=== PATIENT | male | born 1955 | race Caucasian/White ===

== ENCOUNTER 2016-12-10 13:07 | Emergency (ER) | payer OTHER ==
[2016-12-10 13:11] VITALS: BP 114/90; PULSE 89; TEMP 98.2; BMI 37.1
--- NOTE | 2016-12-10 14:43 | PDOC ---
History of Present Illness - General Chief Complaint: Pain, Acute Stated Complaint: LT KNEE PAIN Time Seen by Provider: 12/10/16 13:57 History Source: Patient Exam Limitations: No Limitations - History of Present Illness Initial Comments: 12/10/16 14:36 61 yr male fell on his left knee 2 days ago at work. pt has continued pain. pt is ambulatory. Occurred: denies: other (2 days ago ) Method of Injury: Yes: fell (in a hole ) Lower Ext. Injury Location - Specific Injury Location Knees: left pain Past History - Past Medical History Allergies/Adverse Reactions: Allergies Allergy/AdvReac Type Severity Reaction Status Date / Time No Known Allergies Allergy Verified 12/10/16 13:11 Home Medications: Ambulatory Orders Metoprolol Tartrate [Lopressor -] 25 mg PO BID #0 tab 06/05/11 Aspirin [ASA -] 81 mg PO DAILY 12/10/16 Anemia: No Asthma: No Cancer: No Cardiac Disorders: No CVA: No COPD: No CHF: No Dementia: No Diabetes: No GI Disorders: No Disorders: No HTN: Yes Hypercholesterolemia: No Liver Disease: No Seizures: No Thyroid Disease: No - Surgical History Abdominal Surgery: No Appendectomy: No Cardiac Surgery: No Cholecystectomy: No Lung Surgery: No Neurologic Surgery: No Orthopedic Surgery: No - Psycho/Social/Smoking Cessation Hx Anxiety: No Suicidal Ideation: No Smoking Status: No Smoking History: Never smoked Have you smoked in the past 12 months: No Number of Cigarettes Smoked Daily: 0 Information on smoking cessation initiated: No Hx Alcohol Use: No Drug/Substance Use Hx: No Substance Use Type: None Hx Substance Use Treatment: No Review of Systems - Review of Systems Able to Perform ROS?: Yes Is the patient limited Bur[place]ian proficient: No Constitutional: No: Symptoms Reported HEENTM: No: Symptoms Reported Respiratory: No: Symptoms reported Cardiac (ROS): No: Symptoms Reported ABD/GI: No: Symptoms Reported : No: Symptoms Reported Musculoskeletal: Yes: Symptoms Reported *Physical Exam - Vital Signs Last Vital Signs Temp Pulse Resp BP Pulse Ox 98.2 F 89 17 114/90 96 12/10/16 13:09 12/10/16 13:09 12/10/16 13:09 12/10/16 13:09 12/10/16 13:09 - Physical Exam General Appearance: Yes: Nourished, Appropriately Dressed HEENT: positive: EOMI, MURALI Neck: negative: Tender Respiratory/Chest: positive: Lungs Clear, Normal Breath Sounds Cardiovascular: positive: Regular Rhythm, Regular Rate Musculoskeletal: positive: Normal Inspection Extremity: positive: Normal Capillary Refill, Normal Inspection, Normal Range of Motion, Other (pain to left knee with extension at the patella, no swelling no crepitus, no deformity ) ED Treatment Course - RADIOLOGY Radiology Studies Ordered: Category Date Time Status KNEE 3 POS-LEFT [RAD] Stat Radiology 12/10/16 14:11 Completed Medical Decision Making - Medical Decision Making 12/10/16 14:45 cc: left knee pain trauma after fall 2 days ago no deformity nv intact pt is able to ambulate will get xray to r/o fracture pt refused any pain meds pt is aware of the improtance to follow up within one to 2 weeks with the orthopedist. 12/10/16 14:55 *DC/Admit/Observation/Transfer Diagnosis at time of Disposition: Knee injury Qualifiers: Encounter type: initial encounter Laterality: left Qualified Code(s): S89.92XA - Unspecified injury of left lower leg, initial encounter - Discharge Dispostion Disposition: HOME Condition at time of disposition: Good - Referrals Referrals: Kamar Eng MD [Primary Care Provider] - Jason Osullivan MD [Staff Physician] - - Patient Instructions Additional Instructions: follow with the orthopedist for follow up take motrin (advil, ibuprofen) as needed avoid strenuous activity if pain persists or worsens
== END 2016-12-10 14:58 | disposition home or self-care (01) ==
LOC: JERFT 13:07
DX: S89.82XA Other specified injuries of left lower leg, initial encounter (principal); W17.2XXA Fall into hole, initial encounter; Y93.89 Activity, other specified; Y92.69 Other specified industrial and construction area as the place of occurrence of the external cause; Y99.0 Civilian activity done for income or pay
CPT/HCPCS: 73562-TC-LT; 99281-25

== ENCOUNTER 2018-05-14 13:39 | Emergency (ER) | payer OTHER ==
[2018-05-14 13:43] VITALS: BMI 37.1
--- NOTE | 2018-05-14 14:45 | PDOC ---
History of Present Illness - General Chief Complaint: Lightheaded Stated Complaint: SWEATS Time Seen by Provider: 05/14/18 14:28 History Source: Patient Exam Limitations: No Limitations - History of Present Illness Initial Comments: 05/14/18 14:37 62 year old man history of HTN, prediabetes and HLD who presents with 3 days of numbness and tingling on the bottom of his feet and episodes of lightheadedness , as if he might pass out, that last 30min and resolve with eating food and not associated with exertion or time of day. The patient has blurred vision and diaphoresis with the episodes of lightheadedness. The patient reports one prior episode nubmness and tingling on the feet that occurred one year ago and resolved after < 1month. He describes the tingling as needles and notes that it only occurs when he walks for some time on his feet. The patient denies chest pain, shortness of breath, headache, abdominal pain, recent illness or recent travel or fever, N/V/D/C. Patient reports he was told he had pre-diabetes at PCP appointment 3 months ago. Past History - Past Medical History Allergies/Adverse Reactions: Allergies Allergy/AdvReac Type Severity Reaction Status Date / Time No Known Allergies Allergy Verified 05/14/18 13:43 Home Medications: Ambulatory Orders Aspirin [Reyes Chewable] 81 mg PO DAILY 05/14/18 Atorvastatin Ca [Lipitor] 80 mg PO HS 05/14/18 Losartan Potassium [Cozaar] 100 mg PO DAILY 05/14/18 Anemia: No Asthma: No Cancer: No Cardiac Disorders: No CVA: No COPD: No CHF: No Dementia: No Diabetes: No GI Disorders: No Disorders: No HTN: Yes Hypercholesterolemia: Yes Liver Disease: No Seizures: No Thyroid Disease: No - Surgical History Abdominal Surgery: No Appendectomy: No Cardiac Surgery: No Cholecystectomy: No Lung Surgery: No Neurologic Surgery: No Orthopedic Surgery: No - Suicide/Smoking/Psychosocial Hx Smoking Status: No Smoking History: Never smoked Have you smoked in the past 12 months: No Number of Cigarettes Smoked Daily: 0 Hx Alcohol Use: No Drug/Substance Use Hx: No Substance Use Type: None Hx Substance Use Treatment: No Review of Systems - Review of Systems Able to Perform ROS?: Yes Is the patient limited Grenadian proficient: No Constitutional: No: Chills, Diaphoresis HEENTM: Yes: See HPI, Blurred Vision. No: Tinnitus Respiratory: No: See HPI, Cough, Orthopnea, Shortness of Breath Cardiac (ROS): Yes: Lightheadedness. No: See HPI, Chest Pain, Palpitations, Syncope, Chest Tightness ABD/GI: No: Constipated, Diarrhea, Nausea, Vomiting : No: Burning, Dysuria, Hematuria, Incontinence Neurological: No: Headache, Numbness, Tingling *Physical Exam - Vital Signs Last Vital Signs Temp Pulse Resp BP Pulse Ox 97.9 F 101 H 20 151/81 99 05/14/18 13:40 05/14/18 13:40 05/14/18 13:40 05/14/18 13:40 05/14/18 13:40 - Physical Exam Comments: 05/14/18 15:02 GENERAL: Awake, alert, and fully oriented, in no acute distress HEAD: No signs of trauma, normocephalic, atraumatic EYES: PERRLA, EOMI, sclera anicteric, conjunctiva clear ENT: no dentition, oropharynx clear without exudates. Moist mucosa NECK: Normal ROM, supple, no lymphadenopathy, JVD, or masses LUNGS: No distress, speaks full sentences, clear to auscultation bilaterally HEART: Regular rate and rhythm, normal S1 and S2, no murmurs, rubs or gallops, peripheral pulses normal and equal bilaterally. ABDOMEN: Soft, nontender, normoactive bowel sounds. No guarding, no rebound. No masses EXTREMITIES : Normal inspection, Normal range of motion, no edema. No clubbing or cyanosis. + bilateral PT nad DP pulses NEUROLOGICAL: Cranial nerves II through XII grossly intact. intact proprioception, Normal speech, normal gait, no focal sensorimotor deficits SKIN: Warm, Dry, normal turgor, no rashes or lesions noted Moderate Sedation - Procedure Monitoring Vital Signs: Procedure Monitoring Vital Signs Temperature 97.9 F 05/14/18 13:40 Pulse Rate 101 H 05/14/18 13:40 Respiratory Rate 20 05/14/18 13:40 Blood Pressure 151/81 05/14/18 13:40 O2 Sat by Pulse Oximetry (%) 99 05/14/18 13:40 ED Treatment Course - LABORATORY CBC & Chemistry Diagram: 05/14/18 14:32 05/14/18 14:32 Medical Decision Making - Medical Decision Making 05/14/18 15:08 62 year old man history of HTN, prediabetes and HLD who presents with 3 days of numbness and tingling on the bottom of his feet and episodes of lightheadedness , as if he might pass out, that last 30min and resolve with eating food and not associated with exertion or time of day. The patient has blurred vision and diaphoresis with the episodes of lightheadedness. The patient reports one prior episode nubmness and tingling on the feet that occurred one year ago and resolved after < 1month. He describes the tingling as needles and notes that it only occurs when he walks for some time on his feet. ED Course: Consider causes of symptoms Tingling: peripheral neuropathy, PAD/claudication Lightheaded: electrolyte, arrythmia, hypoglycemia, aortic stenosis No calf pain or tenderness that occurs when walking, inconsistent with PAD. Patient wth pre-diabetes, likely symptoms due to peripheral neuropathy cbc, cmp, hbA1C, ekg, cxr, ua, ucx, trop EKG: normal sinus rhythm HR 85, no interval abnormalities, narrow QRS, ST and T wave segments and morphology normal. No T waves or ischemic changes. Negative orthostatics vitals, no drop in systolic BP > 20, diastolic > 10 or HR inc by 30bpm 05/14/18 16:15 cbc, cmp, trop - negative 05/14/18 16:33 PCP, Dr. Eng contacted, informed of patient. would like to see patient in office on Wednesday 05/16 at 3pm. Pneding HbA1c and CXR. 05/14/18 16:43 CXR: well demarcated cardiac borders and costophrenic angles without blunting, no cardiomegaly, midline airway, appropriate vascular markings, as read by this process description writer. 05/14/18 17:05 UA: negative. 05/14/18 17:18 HbA1C: 6 Repeat trop, if negative DC 05/14/18 18:44 Repeat troponin negative. Patient stable for discharge. Informed of all lab and imaging results. Given follow up instructions and strict return precautions. Patient expressed understanding and agree to plan. *DC/Admit/Observation/Transfer Diagnosis at time of Disposition: Neuropathy - Discharge Dispostion Disposition: HOME Condition at time of disposition: Stable Decision to Admit order: No - Referrals Referrals: Kamar Eng MD [Primary Care Provider] - - Patient Instructions Printed Discharge Instructions: DI for Peripheral Neuropathy Additional Instructions: You were seen in the ED for complaints of lightheadedness and numbness and tingling of the feet. In the ED you were evaluated with labwork and imaging. Your results were unremarkable. There does not appear to be an acute need for immediate hospitalization. Your Primary Care Physician Dr. Eng was contacted and he will see you in the office on Wednesday, May 16 at 3pm. Return to the ED immediately if you experience worsening lightheadedness, loss of consciousness, changes in vision, chest pain, heart palpitations, headache, nausea, vomiting, shortness of breath or fever. - Post Discharge Activity
[2018-05-14 15:34] LABS: BASO % 0.6 % (0-2.0); EOS % 0.3 % (0-4.5); HEMOGLOBIN 16.9 GM/dL (11.7-16.9); LYMPH % 16.6 % (8-40); MEAN CELL VOLUME 91.6 fl (80-96); MEAN PLT VOLUME 7.7 fl (7.5-11.1); MONO % 5.5 % (3.8-10.2); PLATELET COUNT 226 K/MM3 (134-434); RBC 5.13 M/mm3 (4.00-5.60); RDW 12.7 % (11.9-15.9); WHITE BLOOD COUNT 9.9 K/mm3 (4.0-10.0)
[2018-05-14] MEDS ORDERED: SODIUM CHLORIDE 1,000 ML IV SCH (15:45)
[2018-05-14 15:59] LABS: ALBUMIN 4.4 g/dl (3.4-5.0); ALK PHOS 60 U/L (45-117); ANION GAP 7 MMOL/L (8-16); BILIRUBIN,TOTAL 0.5 mg/dL (0.2-1); BLOOD UREA NITROGEN 26 mg/dL (7-18); CALCIUM 8.3 mg/dL (8.5-10.1); CHLORIDE 106 mmol/L (98-107); CO2 25 mmol/L (21-32); CREATININE 1.1 mg/dL (0.55-1.3); GLUCOSE,RANDOM 100 mg/dL (74-106); POTASSIUM 4.4 mmol/L (3.5-5.1); SGOT/AST 28 U/L (15-37); SGPT/ALT 31 U/L (13-61); SODIUM 138 mmol/L (136-145)
[2018-05-14 16:00] VITALS: BP 141/88; PULSE 83; TEMP 98
[2018-05-14 16:28] LABS: URINE APPEARANCE CLEAR; URINE BILIRUBIN NEGATIVE (<2.0 mg/dL); URINE COLOR LTYELLOW; URINE GLUCOSE (UA) NEGATIVE (NEGATIVE); URINE KETONE NEGATIVE (NEGATIVE); URINE LEUK ESTERASE NEGATIVE (NEGATIVE); URINE NITRITE NEGATIVE (NEGATIVE); URINE PROTEIN NEGATIVE (NEGATIVE); URINE UROBILINOGEN NEGATIVE mg/dL (0.2-1.0)
--- NOTE | 2018-05-14 16:30 | PDOC ---
Attending Attestation - Resident Resident Name: BillyFany - ED Attending Attestation I have performed the following: I have examined & evaluated the patient, The case was reviewed & discussed with the resident, I agree w/resident's findings & plan, Exceptions are as noted - HPI HPI: 05/14/18 16:31 The patient is a 62 year old male, with a significant past medical history of HTN and HLD, who presents to the emergency department with 3 days of symmetric intermittent numbness and tingling to the bilateral bottoms of the feet. Patient endorses his numbness and tingling begin after walking long periods of time,he denies currently. Reports when numbness occurs, it only occurs to the bottom of both feet, not the top of the foot or the rest of the extremity. He notes similar episodes a year ago which occurred for a month and resolved on its own. Pt had an episode of lightheadedness today lasting 30 minutes while at [employer] that resolved with eating lunch that prompted him to come to the ED. 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 Denies current lightheadedness, states he is asymptomatic. Reports recent diagnosis of pre-diabetes. He denies any recent fevers, chills, headache or dizziness. He denies any recent nausea, vomit, diarrhea or constipation. He denies any recent chest pain or shortness of breath. Denies focal weakness/numbness. He denies any recent dysuria, frequency, urgency or hematuria. Allergies: NKA Past surgical history: None reported. Social History: Nonsmoker. Denies EtOH use and recreational drug use. Primary Care Physician: Dr. Eng - Physicial Exam PE: 05/14/18 18:15 GENERAL: Awake, alert, and fully oriented, in no acute distress EYES: PERRLA, EOMI, sclera anicteric, conjunctiva clear ENT: Oropharynx clear without exudates. Moist mucosa NECK: Normal ROM, supple, no lymphadenopathy, JVD, or masses LUNGS: Breath sounds equal, clear to auscultation bilaterally. No wheezes, and no crackles HEART: Regular rate and rhythm, normal S1 and S2, no murmurs, rubs or gallops ABDOMEN: Soft, nontender, normoactive bowel sounds. No guarding, no rebound. No masses EXTREMITIES: DP and PT pulses are 2+ equal and symmetric. Normal range of motion , no edema. No clubbing or cyanosis. No cords, erythema, or tenderness BACK: No midline spinal tenderness in cervical/thoracic/lumbar region NEUROLOGICAL: Normal speech, cranial nerves intact, negative pronator drift, 5/ 5 strength in all 4 extremities, normal sensation to light touch in all 4 extremities, normal cerebellar exam, normal gait, normal tone SKIN: Warm, Dry, normal turgor, no rashes or lesions noted. - Medical Decision Making 05/14/18 18:21 62yo M hx HTN, HL, pre-DM presents to the ED with transient lightheadedness this morning, resolved with food and 3 days of intermittent exertional numbness only to the bottom of the feet b/l. Vitals wnl. Exam completely non focal, no neuro deficits. ORthostatics negative. With regards to transient lightheadedness , labs, EKG, CXR performed with no metabolic abnormalities, no ischemia, no evidence of infection or structural abnormalities. With regards to transient plantar tingling/numbness, possible peripheral neuropathy vs anemia. HgbA1C 6 consistent with pre-DM. MCV wnl. Unclear etiology, but could be due to pre-DM. 2 + peripheral pulses with normal cap refill b/l argues against claudication or vascular lesions. Results and case discussed with pt's PMD Dr. Eng who would like to see the patient Wednesday 05/16. Pt asymptomatic while in ED, does not appear to need emergent care at this time. Requests DC home, agree to f/u on Wednesday. REturn precautions given. I discussed the physical exam findings, ancillary test results and final diagnoses with the patient. I answered all of the patient's questions. The patient was satisfied with the care received and felt comfortable with the discharge plan and treatment plan. The patient will call their primary care physician within 24 hours to arrange follow-up and will return to the Emergency Department with any new, persistent or worsening symptoms. Heart Score/ECG Review #1 05/14/18 18:20 Twelve-lead EKG was performed and reviewed by me. Normal sinus rhythm, rate 85. Normal axis and intervals. No ST elevations or T-wave inversions.
--- NOTE | 2018-05-16 07:23 | EKG ---
Test Reason : Blood Pressure : / mmHG Vent. Rate : 085 BPM Atrial Rate : 085 BPM P-R Int : 182 ms QRS Dur : 082 ms QT Int : 362 ms P-R-T Axes : 052 -08 048 degrees QTc Int : 430 ms NORMAL SINUS RHYTHM NORMAL ECG WHEN COMPARED WITH ECG OF 04-JUN-2011 14:40, NONSPECIFIC T WAVE ABNORMALITY, IMPROVED IN LATERAL LEADS Confirmed by JOSEPH MCKEON, TERESE ([id number]) on 05/16/2018 7:23:20 AM Referred By: Confirmed By:TERESE RUIZ MD
== END 2018-05-14 18:47 | disposition home or self-care (01) ==
LOC: JER 13:39
DX: G62.9 Polyneuropathy, unspecified (principal); I10 Essential (primary) hypertension; R73.03 Prediabetes; E78.5 Hyperlipidemia, unspecified
CPT/HCPCS: 36415; 71045-TC-FY; 80053; 81003; 82962; 83036; 84484; 85025; 87086; 93005; 93010; 99284-25; J7030

== ENCOUNTER 2019-05-24 16:31 | Emergency (ER) | payer OTHER ==
[2019-05-24 16:38] VITALS: BP 101/70; PULSE 77; TEMP 99; BMI 33.9
--- NOTE | 2019-05-24 16:43 | PDOC ---
Rapid Medical Evaluation Chief Complaint: Headache Time Seen by Provider: 05/24/19 16:34 Medical Evaluation: Allergies Allergy/AdvReac Type Severity Reaction Status Date / Time No Known Allergies Allergy Verified 05/14/18 13:43 Vital Signs Temp Pulse Resp BP Pulse Ox 99.0 F 77 16 101/70 99 05/24/19 16:35 05/24/19 16:35 05/24/19 16:35 05/24/19 16:35 05/24/19 16:35 05/24/19 16:42 Pt c/o: frontal, nasal headache x 1 week, no fever or visual changes, no head injury, similar s/s to sinusitis he had 1 year ago pt on brief exam: vss, eomi, perrl Pt ordered for: cbc, comp, ivf, iv, head ct pt to proceed to the ED 05/24/19 16:45 Discharge Disposition - Diagnosis Headache - Discharge Dispostion Condition at time of disposition: Stable - Referrals - Patient Instructions - Post Discharge Activity
[2019-05-24] MEDS ORDERED: CYCLOBENZAPRINE HCL 10 MG TABLET (FP) PO ONE (17:51)
[2019-05-24] MEDS ORDERED: KETOROLAC TROMETHAMINE 60 MG/2 ML VIAL IM ONE (17:51)
[2019-05-24] MEDS ORDERED: CYCLOBENZAPRINE HCL 10 MG TABLET (FP) ONE ×2 (18:00→18:06)
[2019-05-24] MEDS ORDERED: KETOROLAC TROMETHAMINE 60 MG/2 ML VIAL ONE (18:00)
--- NOTE | 2019-05-24 18:43 | PDOC ---
Documentation entered by Ashley Washington SCRIBE, acting as scribe for Gamaliel Renner MD. Gamaliel Renner MD: This documentation has been prepared by the Padmini pham Nirvannie, SCRIBE, under my direction and personally reviewed by me in its entirety. I confirm that the documentation accurately reflects all work, treatment, procedures, and medical decision making performed by me. Attending Attestation - Resident Resident Name: Anibal Simeon - ED Attending Attestation I have performed the following: I have examined & evaluated the patient, The case was reviewed & discussed with the resident, I agree w/resident's findings & plan, Exceptions are as noted - HPI HPI: 05/24/19 17:46 63y M hx of htn, hl, presents with 2 weeks of gradual onset R frontal/parietal headache. Denies any focal numbnes/tingling/.weakness, vision changes, dizziness /imbalance, fever/chills. Pt notes it started off as a crick in his neck approx 2 weeks ago, that he "hears a sound in his ear when he moves his head", notes that he began to feel mild discomfort that began to radiate up to the base of the skull. The pain seems worse when he turns his head in certain positions. Patient denies any recent injury, falls, injuries, focal weakness, numbness, tingling, vision changes, chest pain, shortness of breath. Patient has been taking Tylenol with mild improvement - Physicial Exam PE: 05/24/19 18:41 GENERAL: The patient is awake, alert, and fully oriented, Nontoxic - in no acute distress. HEAD: Normocephalic, atraumatic. EYES: extraocular movements intact, sclera anicteric, conjunctiva clear. ENT: Normal voice, Moist mucous membranes. NECK: Normal range of motion, supple, mild tenderness in the trapezius bilaterally extending to the base of the skull LUNGS: Breath sounds equal, clear to auscultation bilaterally. No wheezes, no rhonchi, no rales. HEART: Regular rate and rhythm, normal S1 and S2 without murmur, rub or gallop. ABDOMEN: Soft, nontender, No guarding, no rebound. No CVA tenderness EXTREMITIES: Normal range of motion, no edema. NEUROLOGICAL: No facial assymetry, Normal speech, PSYCH: Normal mood, normal affect. SKIN: Warm, Dry, normal turgor, - Medical Decision Making 05/24/19 18:42 Suspect the patient's symptoms may be secondary to neck spasms Patient feeling improved after Toradol and Flexeril No signs suggestive of acute neurologic or intracranial emergency. Recommend supportive care including NSAIDs, Tylenol, heating pads, rest Return precautions were discussed
--- NOTE | 2019-05-24 19:07 | PDOC ---
History of Present Illness - General Chief Complaint: Headache Stated Complaint: HEADACHES Time Seen by Provider: 05/24/19 16:34 History Source: Patient Past History - Past Medical History Allergies/Adverse Reactions: Allergies Allergy/AdvReac Type Severity Reaction Status Date / Time No Known Allergies Allergy Verified 05/14/18 13:43 Home Medications: Ambulatory Orders Aspirin [Reyes Chewable] 81 mg PO DAILY 05/14/18 Atorvastatin Ca [Lipitor] 80 mg PO HS 05/14/18 Losartan Potassium [Cozaar] 100 mg PO DAILY 05/14/18 Anemia: No Asthma: No Cancer: No Cardiac Disorders: No CVA: No COPD: No CHF: No Dementia: No Diabetes: No GI Disorders: No Disorders: No HTN: Yes Hypercholesterolemia: Yes Liver Disease: No Seizures: No Thyroid Disease: No - Surgical History Abdominal Surgery: No Appendectomy: No Cardiac Surgery: No Cholecystectomy: No Lung Surgery: No Neurologic Surgery: No Orthopedic Surgery: No - Immunization History Immunization Up to Date: No - Psycho Social/Smoking Cessation Hx Smoking Status: No Smoking History: Former smoker Have you smoked in the past 12 months: No Number of Cigarettes Smoked Daily: 0 Information on smoking cessation initiated: No Hx Alcohol Use: No Drug/Substance Use Hx: No Substance Use Type: None Hx Substance Use Treatment: No *Physical Exam - Vital Signs Last Vital Signs Temp Pulse Resp BP Pulse Ox 99.0 F 77 16 101/70 99 05/24/19 16:35 05/24/19 16:35 05/24/19 16:35 05/24/19 16:35 05/24/19 16:35 ED Treatment Course - Medications Given in the ED: ED Medications Discontinued Medications Generic Name Dose Route Start Last Admin Trade Name Freq PRN Reason Stop Dose Admin Cyclobenzaprine HCl 10 mg 05/24/19 17:51 05/24/19 18:13 Flexeril - PO 05/24/19 17:52 10 mg ONCE ONE Administration Ketorolac Tromethamine 60 mg 05/24/19 17:51 05/24/19 18:13 Toradol Injection - IM 05/24/19 17:52 60 mg ONCE ONE Administration Discharge - Discharge Information Problems reviewed: Yes Clinical Impression/Diagnosis: Headache Qualifiers: Headache type: unspecified Headache chronicity pattern: acute headache Intractability: not intractable Qualified Code(s): R51 - Headache Condition: Stable Disposition: HOME - Admission No - Follow up/Referral Referrals: Kamar Eng MD [Primary Care Provider] - - Patient Discharge Instructions Patient Printed Discharge Instructions: DI for Headache, DI for Neck Pain Additional Instructions: You were seen in the ER for neck pain and headache. Your pain improved with muscle relaxants. Please take acetaminophen as needed every 6 hours to control your pain - review the back of the bottle and make sure that you do not take more than the maximum daily dose. Please return to the ER if you develop weakness, intractable nausea and vomiting, urinary incontinence, or a headache that is very severe and concerning to you. Please see your primary care provider as soon as possible, in the next 2-3 days. - Post Discharge Activity
== END 2019-05-24 20:15 | disposition home or self-care (01) ==
LOC: JER 16:31
PROC: 3E0233Z Introduction of Anti-inflammatory into Muscle, Percutaneous Approach (ICD-10-PCS; principal; 2019-05-24)
DX: R51 Headache (principal); Z87.891 Personal history of nicotine dependence; I10 Essential (primary) hypertension; E78.00 Pure hypercholesterolemia, unspecified
CPT/HCPCS: 99282-25

== ENCOUNTER 2020-01-20 09:43 | Emergency (ER) | payer OTHER ==
[2020-01-20 09:48] VITALS: BP 151/77; PULSE 85; TEMP 98.1; BMI 32.3
--- NOTE | 2020-01-20 10:29 | PDOC ---
History of Present Illness - General Chief Complaint: Pain, Acute Stated Complaint: R/KNEE PAIN Time Seen by Provider: 01/20/20 10:04 History Source: Patient Exam Limitations: No Limitations - History of Present Illness Initial Comments: 01/20/20 10:25 Patient is a 64-year-old male with a history of hypertension who presents to the ED with complaint of right knee pain that has been ongoing since January 01. He states that he slipped off the bed of his truck at work and has had knee pain since. He states the pain was not immediate but began thereafter. He saw his primary doctor the Wednesday after his injury and was prescribed Naprosyn. He states he was told he did not have any fractures. The patient states the last 2 days the pain has been worse so he came to the ED for evaluation. He has been putting ice on his knee which has been helping. He states the Naprosyn does not help. He denies any numbness or tingling. He has been walking on his knee but states it hurts to do so. The pain does not radiate. Past History - Medical History Allergies/Adverse Reactions: Allergies Allergy/AdvReac Type Severity Reaction Status Date / Time No Known Allergies Allergy Verified 01/20/20 09:48 Home Medications: Ambulatory Orders Aspirin [Reyes Chewable] 81 mg PO DAILY 05/14/18 Atorvastatin Ca [Lipitor] 80 mg PO HS 05/14/18 Losartan Potassium [Cozaar] 100 mg PO DAILY 05/14/18 Anemia: No Asthma: No Cancer: No Cardiac Disorders: No CVA: No COPD: No CHF: No Dementia: No Diabetes: No GI Disorders: No Disorders: No HTN: Yes Hypercholesterolemia: Yes Liver Disease: No Seizures: No Thyroid Disease: No - Surgical History Abdominal Surgery: No Appendectomy: No Cardiac Surgery: No Cholecystectomy: No Lung Surgery: No Neurologic Surgery: No Orthopedic Surgery: No - Immunization History Immunization Up to Date: No - Psycho-Social/Smoking History Smoking Status: No Smoking History: Never smoked Have you smoked in the past 12 months: No Number of Cigarettes Smoked Daily: 0 Information on smoking cessation initiated: No - Substance Abuse Hx (Audit-C & DAST Scrn) How often the patient has a drink containing alcohol: Never Score: In Men: 4 or > Positive; In Women: 3 or > Positive: 0 Screen Result (Pos requires Nsg. Audit-10AR): Negative In the last yr the pt used illegal drug/Rx for NonMed reason: No Score: Yes response is considered Positive: 0 Screen Result (Positive result requires Nsg. DAST-10): Negative Review of Systems - Review of Systems Comments:: 01/20/20 10:26 - Review of Systems Able to Perform ROS?: Yes Constitutional: No: Fever, Chills, Loss of Appetite, Night Sweats, Weakness HEENTM: No: Eye Pain, Vision changes, Ear Pain, Throat Pain, Throat Swelling, Mouth Pain, Difficulty Swallowing Respiratory: No: Cough, Shortness of Breath, Wheezing, Sputum Production Cardiac (ROS): No: Chest Pain, Chest Tightness, Palpitations, Irregular Heart Beat, Edema ABD/GI: No: Nausea, Vomiting, Abdominal Pain, Diarrhea : No Dysuria, No Hematuria, No Frequency, No Urgency Musculoskeletal: No: Muscle Pain, Back Pain, Muscle Weakness, Neck Pain; positive: Right knee pain Integumentary: No: Lesions, Rash Neurological: No: Headache, Numbness, Tingling, Weakness, Speech Difficulties *Physical Exam - Vital Signs Last Vital Signs Temp Pulse Resp BP Pulse Ox 98.1 F 85 19 151/77 98 01/20/20 09:46 01/20/20 09:46 01/20/20 09:46 01/20/20 09:46 01/20/20 09:46 - Physical Exam 01/20/20 10:27 - Physical Exam General Appearance: Nourished, Appropriately Dressed, No Distress HEENT: EOMI, Normal Voice, Hearing Grossly Normal Neck: Supple, No Lymphadenopathy (R), No Lymphadenopathy (L), No Rigidity, No Decreased range of motion Respiratory/Chest: Lungs Clear, Normal Breath Sounds. No Respiratory Distress, No Accessory Muscle Use Cardiovascular: Regular Rhythm, Regular Rate, S1, S2 Musculoskeletal: Normal Inspection. No Decreased Range of Motion; right knee pain without reproducible tenderness to palpation. Full range of motion of the right knee from 0 to 110 degrees actively. Pain elicited with valgus stress, no tenderness with varus stress. No crepitus appreciated. Extremity: Normal Capillary Refill, Normal Inspection Integumentary: Normal Color, Dry. No Rash Neurologic: yolk spray drier II-XII NML intact, Fully Oriented, Alert, Normal Mood/Affect, Normal Response ED Treatment Course - RADIOLOGY Radiology Studies Ordered: Category Date Time Status KNEE 3 POS-RIGHT [RAD] Stat Radiology 01/20/20 10:23 Ordered Medical Decision Making - Medical Decision Making 01/20/20 10:28 Assessment: Patient is a 64-year-old male with right knee pain since January 02, 2020 after a fall with a bed of his work truck. Plan: -Right knee x-ray ordered -Will reassess 01/20/20 10:50 Patient's right knee x-ray is negative for acute pathology. We will give him referral to orthopedics for him to follow-up with. He has been made aware that since this is Worker's Compensation he may have to go through Worker's Comp. for further evaluation and treatment. He can continue to take the Naprosyn that he was prescribed for pain. He understands and agrees with this treatment plan he is stable for discharge. Discharge - Discharge Information Problems reviewed: Yes Clinical Impression/Diagnosis: Right knee pain Qualifiers: Chronicity: acute Qualified Code(s): M25.561 - Pain in right knee Condition: Stable Disposition: HOME - Follow up/Referral Referrals: Kamar Eng MD [Primary Care Provider] - Wade Rodriguez MD [Staff Physician] - - Patient Discharge Instructions Patient Printed Discharge Instructions: DI for Knee Pain Additional Instructions: Ice and elevate your right knee. You can continue to take the Naprosyn as needed but only as prescribed. Follow-up with orthopedics for further evaluation and treatment. You may require an outpatient MRI if your pain continues. - Post Discharge Activity Work/Back to School Note: Back to Work
== END 2020-01-20 11:14 | disposition home or self-care (01) ==
LOC: JERFT 09:43
DX: M25.561 Pain in right knee (principal)
CPT/HCPCS: 73562-TC-RT-FY; 99283-25

== ENCOUNTER 2020-07-08 13:17 | Emergency (ER) | payer OTHER ==
[2020-07-08 13:34] VITALS: TEMP 98; BMI 38.7
[2020-07-08 16:09] LABS: BASO % 0.4 % (0-2.0); EOS % 0.2 % (0-4.5); HEMATOCRIT 49.8 % (35.4-49); HEMOGLOBIN 17.3 GM/dL (11.7-16.9); LYMPH % 17.1 % (8-40); MCH 32.7 pg (25.7-33.7); MCHC 34.6 g/dl (32.0-35.9); MEAN CELL VOLUME 94.5 fl (80-96); MONO % 8.7 % (3.8-10.2); NEUT % 73.6 % (42.8-82.8); RBC 5.28 M/mm3 (4.00-5.60); RDW 13.4 % (11.9-15.9); WHITE BLOOD COUNT 9.4 K/mm3 (4.0-10.0)
[2020-07-08 16:23] LABS: CHLORIDE 105 mmol/L (98-107); POTASSIUM 4.1 mmol/L (3.5-5.1); SODIUM 137 mmol/L (136-145)
[2020-07-08 16:25] LABS: ANION GAP 7 MMOL/L (8-16); BLOOD UREA NITROGEN 16.6 mg/dL (7-18); CALCIUM 8.8 mg/dL (8.5-10.1); CO2 24 mmol/L (21-32); GLUCOSE,RANDOM 94 mg/dL (74-106)
[2020-07-08 16:28] LABS: CREATININE 0.8 mg/dL (0.55-1.3); SGOT/AST 20 U/L (15-37); SGPT/ALT 36 U/L (13-61)
[2020-07-08 16:30] LABS: BILIRUBIN,TOTAL 1.1 mg/dL (0.2-1)
[2020-07-08 16:31] LABS: ALK PHOS 54 U/L (45-117)
[2020-07-08 18:13] LABS: PLATELET ESTIMATE NORMAL
[2020-07-08 20:13] VITALS: BP 144/88; PULSE 100
== END 2020-07-08 20:12 | disposition home or self-care (01) ==
LOC: JER 13:17
DX: R07.1 Chest pain on breathing (principal)
CPT/HCPCS: 36415; 71046-TC-FY; 71275-TC; 80053; 82550; 84484; 85025; 93005; 93010; 99285-25; C9803; Q9967; U0003

== ENCOUNTER 2021-05-21 14:08 | Emergency (ER) | payer OTHER ==
[2021-05-21 14:42] VITALS: BP 105/68; PULSE 87; TEMP 98.3; BMI 37.1
[2021-05-21 17:15] LABS: BASO % 0.4 % (0-2.0); EOS % 0.4 % (0-4.5); HEMATOCRIT 51.1 % (35.4-49); HEMOGLOBIN 17.8 GM/dL (11.7-16.9); LYMPH % 24.8 % (8-40); MCH 32.4 pg (25.7-33.7); MCHC 34.9 g/dl (32.0-35.9); MEAN CELL VOLUME 92.9 fl (80-96); MEAN PLT VOLUME 7.4 fl (7.5-11.1); MONO % 10.3 % (3.8-10.2); NEUT % 64.1 % (42.8-82.8); PLATELET COUNT 217 10^3/uL (134-434); RBC 5.51 M/mm3 (4.00-5.60); RDW 13.1 % (11.9-15.9); WHITE BLOOD COUNT 7.7 K/mm3 (4.0-10.0)
[2021-05-21 17:34] LABS: CHLORIDE 106 mmol/L (98-107); SODIUM 139 mmol/L (136-145)
[2021-05-21 17:37] LABS: CALCIUM 9.2 mg/dL (8.5-10.1)
[2021-05-21 17:38] LABS: ANION GAP 10 MMOL/L (8-16); BLOOD UREA NITROGEN 20.5 mg/dL (7-18); CO2 23 mmol/L (21-32); GLUCOSE,RANDOM 100 mg/dL (74-106)
[2021-05-21 17:41] LABS: CREATININE 0.9 mg/dL (0.55-1.3); SGOT/AST 17 U/L (15-37); SGPT/ALT 28 U/L (13-61)
[2021-05-21 17:43] LABS: TOT PROT 8.2 g/dl (6.4-8.2)
[2021-05-21 17:44] LABS: ALK PHOS 53 U/L (45-117)
[2021-05-21] MEDS ORDERED: SODIUM CHLORIDE 0.9% 500 ML INFUS.BAG IV ONE (19:09)
== END 2021-05-21 21:00 | disposition home or self-care (01) ==
LOC: JER 14:08
DX: M54.6 Pain in thoracic spine (principal); I71.2 Thoracic aortic aneurysm, without rupture
CPT/HCPCS: 36415; 71275-TC; 74174-TC; 80053; 82550; 84484; 85025; 93005; 93010; 99285-25